=== PATIENT | male | born 1960 | race Two or more races ===

== ENCOUNTER 2016-08-17 10:25 | Emergency (ER) | payer OTHER ==
[~2016-08-17] VITALS: Ht 177.8 cm; Wt 165.0 kg
[~2016-08-17 10:25] MED LIST: NAPR-260 PO
[2016-08-17 10:30] VITALS: Ht 177.8 cm; Wt 165.0 kg
[2016-08-17] MEDS ORDERED: SOD CHLORIDE 0.9% 2,000 ML IV STA (11:03)
[2016-08-17 11:19] LABS: ADD SCAN DIFF NO
[2016-08-17 11:21] LABS: BASOPHILS % 0.3 % (0.0-2.0); EOSINOPHILS # 0.2 10^3/ul (0.0-0.5); EOSINOPHILS % 2.1 % (0.0-7.0); HEMATOCRIT 39.3 % (42.0-52.0); HEMOGLOBIN 13.5 g/dl (14.0-18.0); LYMPHOCYTES # 1.5 10^3/ul (0.8-2.9); LYMPHOCYTES % 18.7 % (15.0-51.0); MEAN CORPUSCULAR HGB CONC 34.4 g/dl (32.0-37.0); MEAN CORPUSCULAR VOLUME 84.3 fl (82.0-101.0); MEAN PLATELET VOLUME 11.4 fl (7.4-10.4); MONOCYTE # 0.8 10^3/ul (0.3-0.9); MONOCYTES % 9.8 % (0.0-11.0); NEUTROPHIL # 5.4 10^3/ul (1.6-7.5); NEUTROPHILS % 68.6 % (39.0-77.0); PLATELET COUNT 250 10^3/UL (140-415); RED BLOOD COUNT 4.66 10^6/ul (4.70-6.10); RED CELL DISTRIBUTION WIDTH 12.7 % (11.5-14.5); WHITE BLOOD COUNT 7.9 10^3/ul (4.8-10.8)
[2016-08-17 11:28] LABS: POTASSIUM 3.9 mmol/L (3.5-5.1)
[2016-08-17 11:30] LABS: CREATININE 0.97 mg/dl (0.61-1.24)
[2016-08-17 11:31] LABS: CALCIUM 8.8 mg/dl (8.4-10.2)
[2016-08-17] MEDS ORDERED: SITA100T8 PO (12:02)
[2016-08-17] MEDS ORDERED: ASPI81TA3 PO (12:03)
[2016-08-17] MEDS ORDERED: METO-448 PO ×2 (12:03→12:20)
[2016-08-17] MEDS ORDERED: HYD25 PO ×2 (12:03→12:19)
[2016-08-17] MEDS ORDERED: METF500T4 PO (12:03)
[2016-08-17] MEDS ORDERED: LISI10TA2 PO (12:04)
[2016-08-17] MEDS ORDERED: TAMS0.4C2 PO (12:05)
[2016-08-17] MEDS ORDERED: LISI20TA11 PO (12:20)
[2016-08-17] MEDS ORDERED: SITA50TA2 PO (12:20)
[2016-08-17] MEDS ORDERED: INSULIN LISPRO 100 UNIT/ML VIAL SC STA (13:27)
[2016-08-17 14:12] LABS: ADD UMIC YES; URINE BILIRUBIN (Dip) NEGATIVE (NEGATIVE); URINE BLOOD (Dip) NEGATIVE (NEGATIVE); URINE COLOR LT. YELLOW (YELLOW); URINE KETONES (Dip) NEGATIVE (NEGATIVE); URINE LEUKOCYTE ESTERASE (Dip) TRACE (NEGATIVE); URINE NITRITE (Dip) NEGATIVE (NEGATIVE); URINE TOTAL PROTEIN (Dip) NEGATIVE (NEGATIVE); URINE UROBILINOGEN (Dip) 0.2 E.U./dL (0.1-1.0)
[2016-08-17 14:28] LABS: BACTERIA,URINE OCCASIONAL; SQUAMOUS EPITHELIAL CELL,UR OCCASIONAL; URINE RBCS 0-2 /HPF (0)
--- NOTE | 2016-08-17 14:29 | ERD ---
ER Documentation Chief Complaint Date/Time DATE: 08/17/16 TIME: 11:05 Chief Complaint HYPERGLICEMIA, HAS SHORT EPISODE OF SOB HPI 56-year-old male with history of hypertension and diabetes mellitus type 2 ambulatory to the emergency department complaining of high blood sugar since yesterday. Admits to be noncompliant with diet although he has been taking his medications as prescribed. Otherwise asymptomatic. Denies chest pain, palpitations or shortness of breath. No abdominal pain, nausea, vomiting, diarrhea or constipation. No headache or neck pain. No dysuria or polyuria. No URI symptoms or cough. No fevers or chills. ROS All systems reviewed and are negative except as per history of present illness. Medications Home Meds Reported Medications Sitagliptin* (Januvia*) 50 Mg Tablet, 50 MG PO DAILY, #30 TAB 08/17/16 Metoprolol Tartrate* (Lopressor*) 25 Mg Tab, 25 MG PO BID, #60 TAB 08/17/16 Lisinopril* (Lisinopril*) 20 Mg Tablet, 20 MG PO DAILY, #30 TAB 08/17/16 Hydrochlorothiazide* (Hydrochlorothiazide*) 25 Mg Tab, 25 MG PO DAILY, #30 TAB 08/17/16 Tamsulosin Hcl* (Tamsulosin Hcl*) 0.4 Mg Cap.er.24h, 0.4 MG PO HS, CAP 08/17/16 Aspirin* (Aspirin* Chew) 81 Mg Tab.chew, 81 MG PO DAILY, TAB.CHEW 08/17/16 Discontinued Reported Medications Lisinopril* (Lisinopril*) Unknown Strength Tablet, PO DAILY, #30 TAB 08/17/16 Metformin* (Glucophage*) Unknown Strength Tab, PO BID, #60 TAB 08/17/16 Sitagliptin* (Januvia*) Unknown Strength Tablet, 0 PO DAILY, #30 TAB 08/17/16 Discontinued Scripts Naproxen* (Naprosyn*) 500 Mg Tablet, 500 MG PO BID Y for PAIN AND/OR INFLAMMATION, #30 TAB Prov:TONIE WATT P DEPARTMENT CHAIR 02/11/16 Allergies Allergies: Coded Allergies: No Known Drug Allergies (Verified Allergy, Unknown, 02/11/16) PMhx/Soc Reviewed in chart. As per HPI. History of Surgery: Yes (L arm) Anesthesia Reaction: No Hx Neurological Disorder: No Hx Respiratory Disorders: No Hx Cardiac Disorders: Yes (htn) Hx Psychiatric Problems: No Hx Miscellaneous Medical Probl: Yes (DM) Hx Alcohol Use: No Hx Substance Use: No Hx Tobacco Use: Yes Smoking Status: Current every day smoker FmHx No stroke or cancer Physical Exam Vitals Vital Signs Date Time Temp Pulse Resp B/P Pulse Ox O2 Delivery O2 Flow Rate FiO2 08/17/16 15:45 98.0 88 20 108/52 98 Room Air 08/17/16 10:30 98.1 97 18 127/77 99 Physical Exam Const: Alert, NAD Head: Atraumatic Eyes: Normal Conjunctiva ENT: Normal External Ears, Nose and Mouth. Neck: Full range of motion. Nontender. No meningismus. Resp: Clear to auscultation bilaterally Cardio: Regular rate and rhythm, no murmurs Abd: Soft, non tender, non distended. Normal bowel sounds. Obese. Skin: No petechiae or rashes Back: No midline or flank tenderness Ext: No cyanosis, or edema Neur: Awake and alert. No focal deficit observed. Psych: Normal Mood and Affect Result Diagram: 08/17/16 1112 08/17/16 1112 Results 24 hrs Laboratory Tests Test 08/17/16 10:48 08/17/16 11:12 08/17/16 13:26 08/17/16 13:33 Bedside Glucose 391mg/dL 393mg/dL White Blood Count 7.910^3/ul Red Blood Count 4.6610^6/ul Hemoglobin 13.5g/dl Hematocrit 39.3% Mean Corpuscular Volume 84.3fl Mean Corpuscular Hemoglobin 29.0pg Mean Corpuscular Hemoglobin Concent 34.4g/dl Red Cell Distribution Width 12.7% Platelet Count 85095^3/UL Mean Platelet Volume 11.4fl Neutrophils % 68.6% Lymphocytes % 18.7% Monocytes % 9.8% Eosinophils % 2.1% Basophils % 0.3% Nucleated Red Blood Cells % 0.0/100WBC Neutrophils # 5.410^3/ul Lymphocytes # 1.510^3/ul Monocytes # 0.810^3/ul Eosinophils # 0.210^3/ul Basophils # 0.010^3/ul Nucleated Red Blood Cells # 0.010^3/ul Sodium Level 131mmol/L Potassium Level 3.9mmol/L Chloride Level 92mmol/L Carbon Dioxide Level 28mmol/L Anion Gap 15 Blood Urea Nitrogen 19mg/dl Creatinine 0.97mg/dl Glucose Level 441mg/dl Calcium Level 8.8mg/dl Urine Color LT. YELLOW Urine Clarity CLEAR Urine pH 5.5 Urine Specific [place] 1.015 Urine Ketones NEGATIVE Urine Nitrite NEGATIVE Urine Bilirubin NEGATIVE Urine Urobilinogen 0.2 E.U./dL Urine Leukocyte Esterase TRACE Urine Microscopic RBC 0-2/HPF Urine Microscopic WBC 5-10/HPF Urine Squamous Epithelial Cells OCCASIONAL Urine Bacteria OCCASIONAL Urine Hemoglobin NEGATIVE Urine Glucose 0.5%% Urine Total Protein NEGATIVE Test 08/17/16 14:13 08/17/16 15:22 Bedside Glucose 359mg/dL 299mg/dL Current Medications Medications (Trade) Dose Ordered Sig/Mary Route PRN Reason Start Time Stop Time Status Last Admin Dose Admin Sodium Chloride (NS) 2,000 ml @ 1,000 mls/hr Q2H STAT IV 08/17/16 11:03 08/17/16 13:02 DC 08/17/16 11:24 Insulin Human Lispro (Humalog) 8 unit ONCE STAT SC 08/17/16 13:27 08/17/16 13:30 DC 08/17/16 13:57 Procedures/MDM DOCUMENTS REVIEWED: ED nurse, no prior records available ED COURSE: NS 1L. Humalog 8u SC REEXAMINATION/REEVALUATION: Time: 15:22 BS 299mg/dl. Asymptomatic. MEDICAL DECISION MAKIN-year-old male with history of hypertension and diabetes mellitus type 2 ambulatory to the emergency department complaining of high blood sugar since yesterday. Presentation consistent with diabetic hyperglycemia due to noncompliance.. No evidence of DKA or HONK. No signs of an occult infectious process. Abdominal exam is benign without tenderness, rebound, guarding or signs of peritonitis. Stable for discharge precautionary instructions and outpatient follow-up as counseled. Counseled patient regarding diagnostic workup, diagnosis and need for followup. Understands to return to ED if symptoms recur, worsen or any other concerns. Departure Diagnosis: Primary Impression: Hyperglycemia Additional Impression: Diabetes mellitus type 2 in obese Condition: Stable ADEN JACOME MD Aug 17, 2016 14:29
[2016-08-17 15:45] VITALS: BP 108/52; PULSE 88; RESP 20; TEMP 98
== END 2016-08-17 15:57 | disposition home or self-care (01) ==
LOC: E/R 10:25
DX: E11.65 Type 2 diabetes mellitus with hyperglycemia (principal); I10 Essential (primary) hypertension; F17.210 Nicotine dependence, cigarettes, uncomplicated; E66.9 Obesity, unspecified; Z68.43 Body mass index [BMI] 50.0-59.9, adult; Z79.82 Long term (current) use of aspirin; Z79.84 Long term (current) use of oral hypoglycemic drugs
CPT/HCPCS: 36415; 80048; 81001; 82962; 85025; 96372; J1815; J7030; Z7502; 81003

== ENCOUNTER 2016-09-14 13:21 | Emergency (ER) | payer OTHER ==
[~2016-09-14] VITALS: Ht 177.8 cm; Wt 163.0 kg
[~2016-09-14 13:21] MED LIST changes: +ASPI81TA3 PO; +HYD25 PO; +LISI20TA11 PO; +METO-448 PO; -NAPR-260 PO; +SITA50TA2 PO; +TAMS0.4C2 PO
[2016-09-14 13:27] VITALS: Ht 177.8 cm; Wt 163.0 kg
[2016-09-14] MEDS ORDERED: CLOT30CR24 TOP (15:05)
--- NOTE | 2016-09-14 16:25 | ERD ---
ER Documentation Chief Complaint Date/Time DATE: 09/14/16 TIME: 16:20 Chief Complaint genital problem HPI Patient is a 56-year-old male with past medical history of diabetes, hypertension, hyperlipidemia who presents to the ED with a rash on his penis. He states that he has been using triple antibiotic cream for however he states that there is white discharge underneath his skin on his penis. He denies dysuria urgency. He states that his blood sugars are not well-controlled and states that it was blood sugar of 450 today. He states that he just changed his diabetes medication according to his PCP. Patient states that he would like to get his blood sugar checked today. He denies headache, dizziness. Denies chest pain, cough, shortness of breath or difficulty breathing. Denies nausea, vomiting or diarrhea. Patient does not have abdominal pain. Denies polyuria or polydipsia or polyphagia.. She has no other complaints besides the rash on his penis. Denies stating that it is itchy. Patient is not sexually active for the last 3 years. Patient denies a history of STDs. Denies fever or chills. No other complaints. ROS All systems reviewed and are negative except as per history of present illness. Medications Home Meds Active Scripts Clotrimazole* (Clotrimazole* AF) 1% - 30 Gm Cream.gm., 1 APPLIC TOP BID for 7 Days, TUB Prov:NIMA CLEVELAND PA-C 09/14/16 Reported Medications Sitagliptin* (Januvia*) 50 Mg Tablet, 50 MG PO DAILY, #30 TAB 08/17/16 Metoprolol Tartrate* (Lopressor*) 25 Mg Tab, 25 MG PO BID, #60 TAB 08/17/16 Lisinopril* (Lisinopril*) 20 Mg Tablet, 20 MG PO DAILY, #30 TAB 08/17/16 Hydrochlorothiazide* (Hydrochlorothiazide*) 25 Mg Tab, 25 MG PO DAILY, #30 TAB 08/17/16 Tamsulosin Hcl* (Tamsulosin Hcl*) 0.4 Mg Cap.er.24h, 0.4 MG PO HS, CAP 08/17/16 Aspirin* (Aspirin* Chew) 81 Mg Tab.chew, 81 MG PO DAILY, TAB.CHEW 08/17/16 Allergies Allergies: Coded Allergies: No Known Drug Allergies (Verified Allergy, Unknown, 02/11/16) PMhx/Soc History of Surgery: Yes (L arm) Anesthesia Reaction: No Hx Neurological Disorder: No Hx Respiratory Disorders: No Hx Cardiac Disorders: Yes (htn) Hx Psychiatric Problems: No Hx Miscellaneous Medical Probl: Yes (DM) Hx Alcohol Use: No Hx Substance Use: No Hx Tobacco Use: Yes Smoking Status: Current every day smoker FmHx Family History: No coronary disease, No diabetes, No other Physical Exam Vitals Vital Signs Date Time Temp Pulse Resp B/P Pulse Ox O2 Delivery O2 Flow Rate FiO2 09/14/16 13:27 97.8 107 19 135/100 95 Physical Exam GENERAL: Well-developed, well-nourished obese male. Appears in no acute distress. HEAD: Normocephalic, atraumatic. EYES: Pupils are equally reactive bilaterally. EOMs grossly intact. No conjunctival erythema. ENT: Moist mucous membranes. No uvula deviation. No kissing tonsils. No exudates. NECK: Supple. No lymphadenopathy or thyromegaly. No meningismus. negative kernig. negative brudinski. LUNG: Clear to auscultation bilaterally. No rhonchi, wheezing, rales or coarse breath sounds. HEART: Regular rate and rhythm. No murmurs, rubs or gallops. : Bilaterally descended testicles. No phimosis or paraphimosis. White discharge on penis under the foreskin. Extremities: Equal pulses bilaterally. No peripheral clubbing, cyanosis or edema. No unilateral leg swelling. NEUROLOGIC: Alert and oriented. Moving all four extremities. 5/5 strength in all extremities. Normal speech. Steady gait. SKIN: Normal color. Warm and dry. No rashes or lesions. Capillary refill < 2 seconds Results 24 hrs Laboratory Tests Test 09/14/16 15:14 Bedside Glucose 323mg/dL Procedures/MDM ER COURSE: I kept the patient and/or family informed of laboratory and diagnostic imaging results throughout the emergency room course. MEDICAL DECISION MAKING: This is a 56-year-old male with a past medical history of diabetes, hypertension and hyperlipidemia who presents with rash on his penis and a blood sugar check. Vital signs were reviewed. Patient is afebrile. Patient is not hypoxic. Patient is not toxic or ill-appearing. Patient is alert and oriented. Patient does have a pulse of 107 likely related to stress reaction. Patient's blood pressure 135/100. Patient does have high blood pressure readings at home and he is being managed with his primary care providing regarding this. I have low suspicion for hypertensive urgency, emergency or endorgan damage. I consulted with Dr. Celaya regarding this patient. I did explain to patient that blood sugar will be checked today however if the blood sugar reading is high I will further evaluate with urine analysis, blood work and fluids and proper evaluation. I explained this to patient and patient stated that he did not want any other workup. Patient was only concerned of knowing what his blood sugar was and does not want further workup but did not want to wait in the ER. I consulted with Dr. celaya regarding this and he stated that patient is stable for outpatient therapy. I have low suspicion for DKA or HON K. Patient is asymptomatic. Low suspicion for intracranial hemorrhage, meningitis, intracranial mass, concussion, temporal arteritis, stroke, elevated intracranial pressure, seizure. Low suspicion for necrotizing fasciitis, SJS, toxic epidermal necrolysis, [place], erythema multiforme, gangrene, scarlet fever, meningococcemia, sepsis, anaphylaxis, sepsis, deep space infection, or foreign body. DISCHARGE: At this time, patient is stable for discharge and outpatient management with no new complaints during the ER course. Patient was sent home with clotrimazole and to follow-up with PCP regarding better management of his blood pressure and diabetes. Patient will be discharged home with instructions to recheck for new or worsening symptoms such as fever, nausea, weakness, LOC and to follow up with primary care in the next 1-2 days. Patient was advised to return to the ER for any new or worsening symptoms. Plan was discussed and patient and/or family understands and agrees. Home instructions were given. Departure Diagnosis: Primary Impression: Balanitis Additional Impression: Diabetes Condition: Stable Patient Instructions: Diabetes: Activity Tips, Adalberto Additional Instructions: Llame al doctor MAANA y terrance avila OLENA PARA DENTRO DE 1-2 JAY.Dgale a la secretaria que nosotros le instruimos hacer esta olena.Avise o llame si [place] condicin se empeora antes de la olena. Regresa aqui si peor o no mejor. NIMA CLEVELAND PA-C September 14, 2016 16:25
== END 2016-09-14 15:40 | disposition home or self-care (01) ==
LOC: FTE 13:21
DX: N48.1 Balanitis (principal); E11.9 Type 2 diabetes mellitus without complications; I10 Essential (primary) hypertension; F17.210 Nicotine dependence, cigarettes, uncomplicated; Z79.82 Long term (current) use of aspirin; Z79.84 Long term (current) use of oral hypoglycemic drugs
CPT/HCPCS: 82962; Z7502; 99283

== ENCOUNTER 2016-11-04 23:48 | Emergency (ER) | END 2016-11-05 02:40 | disposition home or self-care (01) | DX: E11.65 Type 2 diabetes mellitus with hyperglycemia (principal); Z79.82 Long term (current) use of aspirin; Z87.891 Personal history of nicotine dependence | CPT/HCPCS: 36415; 80048; 82962; 83605; 85025; 96372; J1815; J7030; Z7502 ==

== ENCOUNTER 2017-06-11 17:20 | Emergency (ER) | END 2017-06-11 18:38 | disposition home or self-care (01) ==